=== PATIENT | female | born 1955 | race Two or more races ===

== ENCOUNTER → 2022-07-15 | Outpatient (CLI) | payer OTHER ==
[2022-07-15 09:08] LABS: Basophils # (auto) 0 10 ^3/uL (0-0.2); Basophils % (auto) 0.6 % (0.0-2.0); Eosinophils # (auto) 0.2 10 ^3/uL (0-0.8); Eosinophils % (auto) 2.4 % (0.0-7.0); Hematocrit 30.3 % (36.0-46.0); Hemoglobin 10.3 g/dL (12.2-16.2); Lymphocytes # (auto) 2.7 10 ^3/uL (0.4-5.4); Lymphocytes % (auto) 39.3 % (10.0-50.0); Mean Corpuscular Hemoglobin 31.7 pg (28.0-32.0); Mean Corpuscular Volume 93.4 fL (80.0-100.0); Monocytes # (auto) 0.5 10 ^3/uL (0-1.3); Monocytes % (auto) 6.8 % (0.0-12.0); Neutrophils # (auto) 3.5 10 ^3/uL (1.6-8.6); Neutrophils % (auto) 50.9 % (37.0-80.0); Nucleated Red Blood Cells % 0.1 %; Red Blood Cells 3.25 10^6/uL (4.0-5.20); Red Cell Distribution Width 14.1 % (11.8-14.3)
[2022-07-15 09:39] LABS: Urine Bacteria NONE SEEN /hpf (None Seen); Urine Blood Negative /uL (Negative); Urine Specific Gravity 1.014 (1.001-1.035); Urine WBC 5 /hpf (0 - 5)
[2022-07-15 09:44] LABS: Potassium 4.7 mmol/L (3.5-5.1)
[2022-07-15 09:58] LABS: BUN/Creatinine Ratio 22.3; Bilirubin, Total 0.4 mg/dL (0.2-1.0); Total Protein 7.6 g/dL (6.4-8.2)
== END | disposition home or self-care (01) ==
LOC: LAB 08:10
PROVIDERS: ATTEND Student in an Organized Health Care Education/Training Program
DX: Z12.11 Encounter for screening for malignant neoplasm of colon (principal); R73.9 Hyperglycemia, unspecified; I10 Essential (primary) hypertension; N39.0 Urinary tract infection, site not specified
CPT/HCPCS: 36415; 80053; 80061; 81001; 82274; 83036; 84443; 85025; 87086

== ENCOUNTER → 2022-11-24 | Outpatient (CLI) | payer OTHER ==
[2022-11-24 08:48] LABS: Urine Bacteria NONE SEEN /hpf (None Seen); Urine Blood Negative /uL (Negative); Urine Specific Gravity 1.015 (1.001-1.035); Urine WBC <1 /hpf (0 - 5)
[2022-11-24 08:50] LABS: Basophils # (auto) 0 10 ^3/uL (0-0.2); Basophils % (auto) 0.7 % (0.0-2.0); Eosinophils # (auto) 0.1 10 ^3/uL (0-0.8); Eosinophils % (auto) 2.5 % (0.0-7.0); Hematocrit 29.5 % (36.0-46.0); Hemoglobin 9.8 g/dL (12.2-16.2); Lymphocytes # (auto) 2.4 10 ^3/uL (0.4-5.4); Lymphocytes % (auto) 44.6 % (10.0-50.0); Mean Corpuscular Hemoglobin 31.9 pg (28.0-32.0); Mean Corpuscular Hgb Conc. 33.1 g/dL (32.0-36.0); Mean Corpuscular Volume 96.2 fL (80.0-100.0); Monocytes # (auto) 0.4 10 ^3/uL (0-1.3); Neutrophils # (auto) 2.5 10 ^3/uL (1.6-8.6); Neutrophils % (auto) 45.2 % (37.0-80.0); Nucleated Red Blood Cells % 0.1 %; Red Blood Cells 3.07 10^6/uL (4.0-5.20); Red Cell Distribution Width 14.5 % (11.8-14.3); White Blood Cell 5.5 10^3/uL (4.4-10.8)
[2022-11-24 09:42] LABS: Albumin 3.9 g/dL (3.4-5.0); Potassium 5.1 mmol/L (3.5-5.1)
[2022-11-24 09:47] LABS: BUN/Creatinine Ratio 19.9 (10.0-20.0); Bilirubin, Total 0.2 mg/dL (0.2-1.0); Calcium 9.2 mg/dL (8.5-10.1); Total Protein 7.6 g/dL (6.4-8.2)
== END | disposition home or self-care (01) ==
LOC: LAB 08:16
PROVIDERS: ATTEND Student in an Organized Health Care Education/Training Program
DX: I12.9 Hypertensive chronic kidney disease with stage 1 through stage 4 chronic kidney disease, or unspecified chronic kidney disease (principal); N18.30 Chronic kidney disease, stage 3 unspecified
CPT/HCPCS: 36415; 80053; 80061; 81001; 83036; 85025

== ENCOUNTER → 2023-02-21 | Outpatient (CLI) | payer OTHER ==
[2023-02-21 07:51] LABS: Basophils # (auto) 0 10 ^3/uL (0-0.2); Basophils % (auto) 0.7 % (0.0-2.0); Eosinophils # (auto) 0.1 10 ^3/uL (0-0.8); Eosinophils % (auto) 2.6 % (0.0-7.0); Hematocrit 29.8 % (36.0-46.0); Hemoglobin 10.2 g/dL (12.2-16.2); Lymphocytes # (auto) 2.5 10 ^3/uL (0.4-5.4); Lymphocytes % (auto) 44.2 % (10.0-50.0); Mean Corpuscular Hemoglobin 32.8 pg (28.0-32.0); Mean Corpuscular Hgb Conc. 34.2 g/dL (32.0-36.0); Monocytes # (auto) 0.5 10 ^3/uL (0-1.3); Monocytes % (auto) 8.1 % (0.0-12.0); Neutrophils # (auto) 2.5 10 ^3/uL (1.6-8.6); Neutrophils % (auto) 44.4 % (37.0-80.0); Nucleated Red Blood Cells % 0.1 %; Red Cell Distribution Width 13.8 % (11.8-14.3); White Blood Cell 5.6 10^3/uL (4.4-10.8)
[2023-02-21 08:11] LABS: Potassium 5.2 mmol/L (3.5-5.1)
[2023-02-21 08:12] LABS: Calcium 9.6 mg/dL (8.5-10.1)
[2023-02-21 08:17] LABS: Albumin 4.6 g/dL (3.2-4.8); BUN/Creatinine Ratio 15.2 (10.0-20.0)
[2023-02-21 08:41] LABS: Urine Bacteria NONE SEEN /hpf (None Seen); Urine Blood Negative /uL (Negative); Urine Clarity Clear (Clear); Urine Hyaline Cast FEW /lpf (0 - 2); Urine Protein, UAD Negative (Negative); Urine Specific Gravity 1.015 (1.001-1.035); Urine Urobilinogen Normal (Negative); Urine WBC 1 /hpf (0 - 5)
[2023-02-21 08:54] LABS: Urine Color Straw (Yellow)
[2023-02-21 08:55] LABS: Protein, Urine 16.4 mg/dL (0.0-11.9)
[2023-02-21 08:58] LABS: Creatinine, Urine 131.12 mg/dL (30.0-125.0); Urine Protein/Creatinine Ratio 0.13
== END | disposition home or self-care (01) ==
LOC: LAB 07:11
PROVIDERS: ATTEND Student in an Organized Health Care Education/Training Program
DX: N18.30 Chronic kidney disease, stage 3 unspecified (principal); N39.0 Urinary tract infection, site not specified; R80.9 Proteinuria, unspecified; E21.3 Hyperparathyroidism, unspecified; M10.9 Gout, unspecified; E55.9 Vitamin D deficiency, unspecified; E11.21 Type 2 diabetes mellitus with diabetic nephropathy
CPT/HCPCS: 36415; 80069; 81001; 82306; 82570; 83970; 84156; 84550; 85025

== ENCOUNTER → 2023-02-24 | Outpatient (CLI) | payer OTHER ==
[2023-02-24 07:54] LABS: Basophils # (auto) 0 10 ^3/uL (0-0.2); Basophils % (auto) 0.7 % (0.0-2.0); Hemoglobin 9.9 g/dL (12.2-16.2); Monocytes # (auto) 0.4 10 ^3/uL (0-1.3); Neutrophils # (auto) 2.6 10 ^3/uL (1.6-8.6)
[2023-02-24 07:59] LABS: Eosinophils # (auto) 0.1 10 ^3/uL (0-0.8); Eosinophils % (auto) 2.4 % (0.0-7.0); Hematocrit 29.6 % (36.0-46.0); Lymphocytes # (auto) 2.6 10 ^3/uL (0.4-5.4); Lymphocytes % (auto) 45.1 % (10.0-50.0); Mean Corpuscular Hemoglobin 32.4 pg (28.0-32.0); Mean Corpuscular Hgb Conc. 33.4 g/dL (32.0-36.0); Mean Corpuscular Volume 96.9 fL (80.0-100.0); Monocytes % (auto) 7.3 % (0.0-12.0); Neutrophils % (auto) 44.5 % (37.0-80.0); Nucleated Red Blood Cells % 0.1 %; Red Blood Cells 3.05 10^6/uL (4.0-5.20); Red Cell Distribution Width 13.6 % (11.8-14.3); White Blood Cell 5.8 10^3/uL (4.4-10.8)
[2023-02-24 08:05] LABS: Urine Bacteria NONE SEEN /hpf (None Seen); Urine Blood Negative /uL (Negative); Urine Clarity Clear (Clear); Urine Color Colorless (Yellow); Urine Protein, UAD Negative (Negative); Urine Specific Gravity 1.014 (1.001-1.035); Urine Urobilinogen Normal (Negative); Urine WBC <1 /hpf (0 - 5)
[2023-02-24 08:56] LABS: Alanine Aminotransferase 12 U/L (7-40); Albumin 4.5 g/dL (3.2-4.8); Alkaline Phosphatase 84 U/L (46-116); Anion Gap 8 (5-15); Aspartate Aminotransferase 17 U/L (13-40); BUN/Creatinine Ratio 16.1 (10.0-20.0); Blood Urea Nitrogen 29 mg/dL (9-23); Calcium 9.5 mg/dL (8.5-10.1); Carbon Dioxide 22 mmol/L (20-30); Chloride 108 mmol/L (98-107); Glucose 90 mg/dL (74-106); LDL Cholesterol 106 mg/dL (< 100); Potassium 5.3 mmol/L (3.5-5.1); Sodium 138 mmol/L (136-145); Triglycerides 102 mg/dL (< 150)
[2023-02-24 08:57] LABS: Bilirubin, Total 0.3 mg/dL (0.2-1.0); Cholesterol 165 mg/dL (< 200); HDL Cholesterol 44 mg/dL (40-59); Total Protein 7.5 g/dL (5.7-8.2)
== END | disposition home or self-care (01) ==
LOC: LAB 07:37
DX: I12.9 Hypertensive chronic kidney disease with stage 1 through stage 4 chronic kidney disease, or unspecified chronic kidney disease (principal); N18.32 Chronic kidney disease, stage 3b; D63.1 Anemia in chronic kidney disease; R73.03 Prediabetes
CPT/HCPCS: 36415; 80053; 80061; 81001; 82306; 83036; 83970; 85025

== ENCOUNTER → 2023-05-30 | Outpatient (CLI) | payer OTHER ==
[2023-05-30 09:00] LABS: Basophils # (auto) 0 10 ^3/uL (0-0.2); Basophils % (auto) 0.5 % (0.0-2.0); Eosinophils # (auto) 0.2 10 ^3/uL (0-0.8); Eosinophils % (auto) 2.7 % (0.0-7.0); Hematocrit 30.9 % (36.0-46.0); Hemoglobin 10.1 g/dL (12.2-16.2); Lymphocytes # (auto) 2.5 10 ^3/uL (0.4-5.4); Lymphocytes % (auto) 35.3 % (10.0-50.0); Mean Corpuscular Hemoglobin 31.8 pg (28.0-32.0); Mean Corpuscular Hgb Conc. 32.9 g/dL (32.0-36.0); Mean Corpuscular Volume 96.9 fL (80.0-100.0); Monocytes # (auto) 0.5 10 ^3/uL (0-1.3); Monocytes % (auto) 7.1 % (0.0-12.0); Neutrophils # (auto) 3.8 10 ^3/uL (1.6-8.6); Neutrophils % (auto) 54.4 % (37.0-80.0); Red Blood Cells 3.19 10^6/uL (4.0-5.20); Red Cell Distribution Width 13.9 % (11.8-14.3)
[2023-05-30 09:22] LABS: Urine Blood Negative /uL (Negative); Urine Clarity HAZY (Clear); Urine Color Colorless (Yellow); Urine Protein, UAD Negative (Negative); Urine Specific Gravity 1.014 (1.001-1.035); Urine Urobilinogen Normal (Negative); Urine pH 5.5 (5.0-8.0)
[2023-05-30 09:23] LABS: Albumin 4.5 g/dL (3.2-4.8); Alkaline Phosphatase 95 U/L (46-116); Anion Gap 5 (5-15); Aspartate Aminotransferase 23 U/L (13-40); Blood Urea Nitrogen 26 mg/dL (9-23); Calcium 9.8 mg/dL (8.5-10.1); Carbon Dioxide 22 mmol/L (20-30); Chloride 109 mmol/L (98-107); Cholesterol 173 mg/dL (< 200); Glucose 87 mg/dL (74-106); HDL Cholesterol 43 mg/dL (40-59); LDL Cholesterol 111 mg/dL (< 100); Sodium 136 mmol/L (136-145); Triglycerides 124 mg/dL (< 150)
[2023-05-30 09:24] LABS: Bilirubin, Total 0.4 mg/dL (0.2-1.0); Total Protein 7.6 g/dL (5.7-8.2)
[2023-05-30 09:25] LABS: Alanine Aminotransferase 9 U/L (7-40)
[2023-05-30 09:32] LABS: Potassium 5.6 mmol/L (3.5-5.1)
== END | disposition home or self-care (01) ==
LOC: LAB 08:45
DX: E11.22 Type 2 diabetes mellitus with diabetic chronic kidney disease (principal); N18.4 Chronic kidney disease, stage 4 (severe); E55.9 Vitamin D deficiency, unspecified; E11.311 Type 2 diabetes mellitus with unspecified diabetic retinopathy with macular edema; E78.5 Hyperlipidemia, unspecified
CPT/HCPCS: 36415; 80053; 80061; 81003; 82306; 85025

== ENCOUNTER → 2023-06-17 | Outpatient (CLI) | payer OTHER ==
[2023-06-17 10:15] LABS: Anion Gap 6 (5-15); Carbon Dioxide 24 mmol/L (20-30); Chloride 108 mmol/L (98-107); Potassium 4.9 mmol/L (3.5-5.1); Sodium 138 mmol/L (136-145)
[2023-06-17 10:16] LABS: Calcium 9.6 mg/dL (8.5-10.1)
[2023-06-17 10:21] LABS: BUN/Creatinine Ratio 14.7 (10.0-20.0); Blood Urea Nitrogen 24 mg/dL (9-23); Glucose 89 mg/dL (74-106)
== END | disposition home or self-care (01) ==
LOC: LAB 09:00
DX: E78.5 Hyperlipidemia, unspecified (principal)
CPT/HCPCS: 36415; 80048

== ENCOUNTER → 2023-09-13 | Outpatient (CLI) | payer OTHER ==
[2023-09-13 08:25] LABS: Basophils # (auto) 0 10 ^3/uL (0-0.2); Basophils % (auto) 0.7 % (0.0-2.0); Eosinophils # (auto) 0.1 10 ^3/uL (0-0.8); Eosinophils % (auto) 2.8 % (0.0-7.0); Hemoglobin 10.3 g/dL (12.2-16.2); Lymphocytes # (auto) 2.4 10 ^3/uL (0.4-5.4); Lymphocytes % (auto) 46.5 % (10.0-50.0); Mean Corpuscular Hemoglobin 31.8 pg (28.0-32.0); Mean Corpuscular Hgb Conc. 33.3 g/dL (32.0-36.0); Mean Corpuscular Volume 95.5 fL (80.0-100.0); Monocytes # (auto) 0.5 10 ^3/uL (0-1.3); Neutrophils # (auto) 2.2 10 ^3/uL (1.6-8.6); Red Blood Cells 3.24 10^6/uL (4.0-5.20); Red Cell Distribution Width 14.2 % (11.8-14.3); White Blood Cell 5.2 10^3/uL (4.4-10.8)
[2023-09-13 08:29] LABS: Urine Bacteria FEW /hpf (None Seen); Urine Blood TRACE /uL (Negative); Urine Budding Yeast OCCASIONAL /hpf (None Seen); Urine Clarity Clear (Clear); Urine Color Light-Yellow (Yellow); Urine Mucus FEW (None Seen); Urine Protein, UAD TRACE (Negative); Urine Specific Gravity 1.016 (1.001-1.035); Urine Urobilinogen Normal (Negative); Urine WBC 1 /hpf (0 - 5)
[2023-09-13 08:38] LABS: Potassium 4.8 mmol/L (3.5-5.1)
[2023-09-13 08:39] LABS: Calcium 9.8 mg/dL (8.5-10.1)
[2023-09-13 08:44] LABS: Albumin 4.2 g/dL (3.2-4.8); BUN/Creatinine Ratio 14.3 (10.0-20.0)
[2023-09-13 08:46] LABS: Phosphorus 3.5 mg/dL (2.4-5.1)
[2023-09-13 09:22] LABS: Creatinine, Urine 128.44 mg/dL (30.0-125.0); Protein, Urine 30.7 mg/dL (0.0-11.9); Urine Protein/Creatinine Ratio 0.24
== END | disposition home or self-care (01) ==
LOC: LAB 08:06
PROVIDERS: ATTEND Student in an Organized Health Care Education/Training Program
DX: N18.31 Chronic kidney disease, stage 3a (principal); D63.1 Anemia in chronic kidney disease; R80.9 Proteinuria, unspecified; R82.90 Unspecified abnormal findings in urine
CPT/HCPCS: 36415; 80069; 81001; 82570; 84156; 85025

== ENCOUNTER → 2023-11-28 | Outpatient (CLI) | payer OTHER ==
[2023-11-28 08:31] LABS: Urine Bacteria None Seen /hpf (None Seen)
[2023-11-28 09:05] LABS: Basophils # (auto) 0 10 ^3/uL (0-0.2); Basophils % (auto) 0.5 % (0.0-2.0); Eosinophils # (auto) 0.2 10 ^3/uL (0-0.8); Eosinophils % (auto) 2.6 % (0.0-7.0); Hematocrit 31.6 % (36.0-46.0); Hemoglobin 10.7 g/dL (12.2-16.2); Lymphocytes # (auto) 2.9 10 ^3/uL (0.4-5.4); Lymphocytes % (auto) 45.3 % (10.0-50.0); Mean Corpuscular Hemoglobin 31.9 pg (28.0-32.0); Mean Corpuscular Hgb Conc. 33.7 g/dL (32.0-36.0); Mean Corpuscular Volume 94.8 fL (80.0-100.0); Monocytes # (auto) 0.5 10 ^3/uL (0-1.3); Monocytes % (auto) 7.5 % (0.0-12.0); Neutrophils # (auto) 2.8 10 ^3/uL (1.6-8.6); Neutrophils % (auto) 44.1 % (37.0-80.0); Red Blood Cells 3.34 10^6/uL (4.0-5.20); Red Cell Distribution Width 15.1 % (11.8-14.3); White Blood Cell 6.4 10^3/uL (4.4-10.8)
[2023-11-28 09:34] LABS: Urine Blood TRACE /uL (Negative); Urine Clarity Clear (Clear); Urine Color Light-Yellow (Yellow); Urine Mucus FEW (None Seen); Urine Protein, UAD Negative (Negative); Urine Specific Gravity 1.017 (1.001-1.035); Urine Urobilinogen Normal (Negative); Urine WBC 1 /hpf (0 - 5); Urine pH 5.5 (5.0-9.0)
[2023-11-28 09:51] LABS: Alanine Aminotransferase 10 U/L (7-40); Alkaline Phosphatase 89 U/L (46-116); Anion Gap 6 (5-15); Calcium 9.5 mg/dL (8.7-10.4); Carbon Dioxide 24 mmol/L (20-30); Chloride 109 mmol/L (98-107); Potassium 4.7 mmol/L (3.5-5.1); Sodium 139 mmol/L (136-145)
[2023-11-28 09:52] LABS: BUN/Creatinine Ratio 15.9 (10.0-20.0); Blood Urea Nitrogen 27 mg/dL (9-23); Glucose 91 mg/dL (74-106); LDL Cholesterol 110 mg/dL (< 100); Triglycerides 130 mg/dL (< 150)
[2023-11-28 09:53] LABS: Albumin 4.4 g/dL (3.2-4.8); Aspartate Aminotransferase 18 U/L (13-40)
[2023-11-28 09:54] LABS: Bilirubin, Total 0.3 mg/dL (0.2-1.0); Cholesterol 173 mg/dL (< 200); HDL Cholesterol 43 mg/dL (40-59); Total Protein 6.9 g/dL (5.7-8.2)
== END | disposition home or self-care (01) ==
LOC: LAB 08:17
PROVIDERS: ATTEND Student in an Organized Health Care Education/Training Program
DX: Z12.11 Encounter for screening for malignant neoplasm of colon (principal); I10 Essential (primary) hypertension; R73.9 Hyperglycemia, unspecified
CPT/HCPCS: 36415; 80053; 80061; 81001; 82043; 83036; 84443; 85025

== ENCOUNTER → 2024-03-08 | Outpatient (CLI) | payer OTHER ==
[2024-03-08 09:09] LABS: Urine Bacteria None Seen /hpf (None Seen)
[2024-03-08 09:20] LABS: Basophils # (auto) 0 10 ^3/uL (0-0.2); Basophils % (auto) 0.6 % (0.0-2.0); Eosinophils # (auto) 0.1 10 ^3/uL (0-0.8); Eosinophils % (auto) 1.9 % (0.0-7.0); Hematocrit 32.1 % (36.0-46.0); Hemoglobin 10.7 g/dL (12.2-16.2); Lymphocytes # (auto) 2.8 10 ^3/uL (0.4-5.4); Lymphocytes % (auto) 44.2 % (10.0-50.0); Mean Corpuscular Hgb Conc. 33.4 g/dL (32.0-36.0); Mean Corpuscular Volume 95.9 fL (80.0-100.0); Monocytes # (auto) 0.5 10 ^3/uL (0-1.3); Monocytes % (auto) 7.5 % (0.0-12.0); Neutrophils % (auto) 45.8 % (37.0-80.0); Nucleated Red Blood Cells % 0.1 %; Platelet Count (auto) 201 10^3/uL (140-450); Red Blood Cells 3.35 10^6/uL (4.0-5.20); White Blood Cell 6.4 10^3/uL (4.4-10.8)
[2024-03-08 10:00] LABS: Alanine Aminotransferase 12 U/L (7-40); Albumin 4.5 g/dL (3.2-4.8); Alkaline Phosphatase 87 U/L (46-116); Anion Gap 7 (5-15); Aspartate Aminotransferase 21 U/L (13-40); Blood Urea Nitrogen 23 mg/dL (9-23); Calcium 9.7 mg/dL (8.7-10.4); Carbon Dioxide 24 mmol/L (20-31); Chloride 106 mmol/L (98-107); Glucose 90 mg/dL (74-106); Potassium 4.7 mmol/L (3.5-5.1); Sodium 137 mmol/L (136-145)
[2024-03-08 10:01] LABS: Bilirubin, Total 0.4 mg/dL (0.2-1.0); Total Protein 7.6 g/dL (5.7-8.2)
[2024-03-08 10:05] LABS: Protein, Urine 6.2 mg/dL (1-14); Urine Blood TRACE /uL (Negative); Urine Clarity Clear (Clear); Urine Color Colorless (Yellow); Urine Protein, UAD Negative (Negative); Urine Specific Gravity 1.007 (1.001-1.035); Urine Urobilinogen Normal (Negative); Urine WBC 1 /hpf (0 - 5); Urine pH 5.5 (5.0-9.0)
[2024-03-08 10:08] LABS: Creatinine, Urine 34.41 mg/dL (30.0-125.0); Urine Protein/Creatinine Ratio 0.18
== END | disposition home or self-care (01) ==
LOC: LAB 08:55
PROVIDERS: ATTEND Internal Medicine Nephrology
DX: E21.3 Hyperparathyroidism, unspecified (principal); N18.30 Chronic kidney disease, stage 3 unspecified; D63.1 Anemia in chronic kidney disease; N39.0 Urinary tract infection, site not specified; R80.9 Proteinuria, unspecified; M10.9 Gout, unspecified; E55.9 Vitamin D deficiency, unspecified; E11.22 Type 2 diabetes mellitus with diabetic chronic kidney disease
CPT/HCPCS: 36415; 80053; 81001; 82043; 82570; 84156; 85025

== ENCOUNTER → 2024-05-29 | Outpatient (CLI) | payer OTHER ==
[2024-05-29 08:32] LABS: Urine Bacteria None Seen /hpf (None Seen)
[2024-05-29 08:58] LABS: Basophils # (auto) 0 10 ^3/uL (0-0.2); Basophils % (auto) 0.8 % (0.0-2.0); Eosinophils # (auto) 0.1 10 ^3/uL (0-0.8); Eosinophils % (auto) 1.8 % (0.0-7.0); Hematocrit 32.8 % (36.0-46.0); Hemoglobin 10.9 g/dL (12.2-16.2); Lymphocytes # (auto) 2.7 10 ^3/uL (0.4-5.4); Lymphocytes % (auto) 46.4 % (10.0-50.0); Mean Corpuscular Hemoglobin 32.2 pg (28.0-32.0); Mean Corpuscular Hgb Conc. 33.3 g/dL (32.0-36.0); Mean Corpuscular Volume 96.5 fL (80.0-100.0); Monocytes # (auto) 0.4 10 ^3/uL (0-1.3); Monocytes % (auto) 7.4 % (0.0-12.0); Neutrophils # (auto) 2.6 10 ^3/uL (1.6-8.6); Neutrophils % (auto) 43.6 % (37.0-80.0); Platelet Count (auto) 205 10^3/uL (140-450); White Blood Cell 5.9 10^3/uL (4.4-10.8)
[2024-05-29 09:06] LABS: Albumin 4.6 g/dL (3.2-4.8); Alkaline Phosphatase 105 U/L (46-116); Anion Gap 7 (5-15); Aspartate Aminotransferase 22 U/L (13-40); BUN/Creatinine Ratio 17.2 (10.0-20.0); Calcium 9.8 mg/dL (8.7-10.4); Carbon Dioxide 23 mmol/L (20-31); Glucose 94 mg/dL (74-106); Potassium 4.7 mmol/L (3.5-5.1); Sodium 139 mmol/L (136-145); Triglycerides 122 mg/dL (< 150); Urine Blood 1+ /uL (Negative); Urine Clarity Clear (Clear); Urine Color Light-Yellow (Yellow); Urine Protein, UAD TRACE (Negative); Urine Specific Gravity 1.015 (1.001-1.035); Urine Squamous Epithelial Cell FEW /hpf (<5); Urine Urobilinogen Normal (Negative); Urine WBC 3 /HPF (0-5); Urine pH 5.5 (5.0-9.0)
[2024-05-29 09:07] LABS: Alanine Aminotransferase 9 U/L (7-40); Bilirubin, Total 0.2 mg/dL (0.2-1.0); Blood Urea Nitrogen 27 mg/dL (9-23); Chloride 109 mmol/L (98-107); Cholesterol 189 mg/dL (< 200); LDL Cholesterol 124 mg/dL (< 100); Total Protein 7.2 g/dL (5.7-8.2)
[2024-05-29 09:14] LABS: HDL Cholesterol 47 mg/dL (40-59)
== END | disposition home or self-care (01) ==
LOC: LAB 08:04
PROVIDERS: ATTEND Student in an Organized Health Care Education/Training Program
DX: I10 Essential (primary) hypertension (principal); R73.9 Hyperglycemia, unspecified
CPT/HCPCS: 36415; 80053; 80061; 81001; 83036; 84443; 85025

== ENCOUNTER → 2024-09-04 | Outpatient (CLI) | payer OTHER ==
[2024-09-04 09:13] LABS: Urine Bacteria None Seen /hpf (None Seen)
[2024-09-04 09:22] LABS: Basophils # (auto) 0 10 ^3/uL (0-0.2); Basophils % (auto) 0.7 % (0.0-2.0); Eosinophils # (auto) 0.2 10 ^3/uL (0-0.8); Eosinophils % (auto) 2.5 % (0.0-7.0); Hematocrit 33.1 % (36.0-46.0); Hemoglobin 11.3 g/dL (12.2-16.2); Lymphocytes # (auto) 2.5 10 ^3/uL (0.4-5.4); Lymphocytes % (auto) 40.9 % (10.0-50.0); Mean Corpuscular Hemoglobin 32.2 pg (28.0-32.0); Mean Corpuscular Hgb Conc. 34.1 g/dL (32.0-36.0); Mean Corpuscular Volume 94.3 fL (80.0-100.0); Monocytes # (auto) 0.5 10 ^3/uL (0-1.3); Monocytes % (auto) 7.4 % (0.0-12.0); Neutrophils # (auto) 2.9 10 ^3/uL (1.6-8.6); Neutrophils % (auto) 48.5 % (37.0-80.0); Nucleated Red Blood Cells % 0.1 %; Platelet Count (auto) 211 10^3/uL (140-450); Red Blood Cells 3.51 10^6/uL (4.0-5.20); Red Cell Distribution Width 14.2 % (11.8-14.3); White Blood Cell 6.1 10^3/uL (4.4-10.8)
[2024-09-04 09:24] LABS: Urine Blood Negative /uL (Negative); Urine Clarity Clear (Clear); Urine Color Light-Yellow (Yellow); Urine Protein, UAD TRACE (Negative); Urine Specific Gravity 1.016 (1.001-1.035); Urine Squamous Epithelial Cell FEW /hpf (<5); Urine Urobilinogen Normal (Negative); Urine WBC 12 /HPF (0-5); Urine pH 5.5 (5.0-9.0)
[2024-09-04 09:39] LABS: Potassium 4.6 mmol/L (3.5-5.1); Sodium 140 mmol/L (136-145)
[2024-09-04 09:40] LABS: Anion Gap 9 (5-15); Carbon Dioxide 24 mmol/L (20-31)
[2024-09-04 09:42] LABS: Chloride 107 mmol/L (98-107); Protein, Urine 29.6 mg/dL (1-14)
[2024-09-04 09:45] LABS: BUN/Creatinine Ratio 15.2 (10.0-20.0); Creatinine, Urine 104.7 mg/dL (30.0-125.0); Glucose 90 mg/dL (74-106); Urine Protein/Creatinine Ratio 0.28
[2024-09-04 09:46] LABS: Blood Urea Nitrogen 23 mg/dL (9-23)
== END | disposition home or self-care (01) ==
LOC: LAB 08:56
PROVIDERS: ATTEND Internal Medicine Nephrology
DX: E11.22 Type 2 diabetes mellitus with diabetic chronic kidney disease (principal); N18.30 Chronic kidney disease, stage 3 unspecified; E11.21 Type 2 diabetes mellitus with diabetic nephropathy; E21.3 Hyperparathyroidism, unspecified; E55.9 Vitamin D deficiency, unspecified; M10.9 Gout, unspecified; N39.0 Urinary tract infection, site not specified; R80.9 Proteinuria, unspecified; D63.1 Anemia in chronic kidney disease
CPT/HCPCS: 36415; 80048; 81001; 82570; 84156; 85025

== ENCOUNTER 2024-09-24 06:10 | Inpatient (IN) | payer OTHER ==
[2024-09-21 10:06] LABS: Urine Bacteria None Seen /hpf (None Seen)
[2024-09-21 10:12] LABS: Basophils # (auto) 0 10 ^3/uL (0-0.2); Basophils % (auto) 0.5 % (0.0-2.0); Eosinophils # (auto) 0.1 10 ^3/uL (0-0.8); Eosinophils % (auto) 1.4 % (0.0-7.0); Hematocrit 32.1 % (36.0-46.0); Hemoglobin 10.8 g/dL (12.2-16.2); Lymphocytes # (auto) 2.5 10 ^3/uL (0.4-5.4); Lymphocytes % (auto) 39.7 % (10.0-50.0); Mean Corpuscular Hemoglobin 32.1 pg (28.0-32.0); Mean Corpuscular Hgb Conc. 33.7 g/dL (32.0-36.0); Mean Corpuscular Volume 95.1 fL (80.0-100.0); Monocytes # (auto) 0.5 10 ^3/uL (0-1.3); Monocytes % (auto) 7.3 % (0.0-12.0); Neutrophils # (auto) 3.2 10 ^3/uL (1.6-8.6); Neutrophils % (auto) 51.1 % (37.0-80.0); Platelet Count (auto) 193 10^3/uL (140-450); Red Blood Cells 3.38 10^6/uL (4.0-5.20); White Blood Cell 6.2 10^3/uL (4.4-10.8)
[2024-09-21 10:39] LABS: Alanine Aminotransferase 12 U/L (7-40); Albumin 4.6 g/dL (3.2-4.8); Alkaline Phosphatase 104 U/L (46-116); Anion Gap 7 (5-15); Aspartate Aminotransferase 18 U/L (13-40); BUN/Creatinine Ratio 19.4 (10.0-20.0); Calcium 9.7 mg/dL (8.7-10.4); Carbon Dioxide 24 mmol/L (20-31); Potassium 4.7 mmol/L (3.5-5.1); Sodium 139 mmol/L (136-145); Total Protein 7.3 g/dL (5.7-8.2)
[2024-09-21 10:40] LABS: INR 0.95 (0.9-1.15); Partial Thromboplastin Time 28.8 SEC (24.5-34.5); Prothrombin Time 10.1 sec (9.3-11.8)
[2024-09-21 10:43] LABS: Bilirubin, Total 0.3 mg/dL (0.2-1.0); Blood Urea Nitrogen 30 mg/dL (9-23); Chloride 108 mmol/L (98-107); Glucose 116 mg/dL (74-106)
[2024-09-21 10:54] LABS: Urine Blood TRACE /uL (Negative); Urine Clarity Clear (Clear); Urine Color Colorless (Yellow); Urine Protein, UAD Negative (Negative); Urine Specific Gravity 1.012 (1.001-1.035); Urine Squamous Epithelial Cell FEW /hpf (<5); Urine Urobilinogen Normal (Negative); Urine WBC 8 /HPF (0-5)
--- NOTE | 2024-09-22 10:08 | DVHHP2 ---
HARD CANDY SPINNER CC & HPI Date Date of Admission: September 24, 2024 Chief Complaints: Reason for admission: Inpatient Surgery History of Present Complaints History of Present Complaints 69y x4, s/p BTL Admitted for planned procedure: vNOTES TVH, poss BSO, Cystocele repair, Rectoc kesha repair, uterosacral colposuspension, cystoscopy, possible laparotomy/ laparoscopy. Indication: Menopausal female with symptomatic uterine prolapse, complains of "vaginal bulge" and pelvic pressure. Denies any COOK PICKLED MEAT bleeding. Has some LUCIAN complaints, still pending eval by Urology for possible incontinence procedure in the future. Recent PAP NILM PMHx: 1. Chronic HTN 2. Hypertensive Kidney disease (CKD stage 3) 3. Osteopenia 4. Chronic Anemia due to kidney disease 5. Hyperlipidemia Past Surg Hx: BTL Meds: Ferrous Sulfate 325mg Lisinopril (stopped 09/2024) Vitamin D Omeprazole Loratidine Allergies: NKDA Social Hx: . Denies EtOH, drug or tobacco use now or in the past. Family Hx: Mother: HTN, DM2 Father: HTN Brother: Kidney failure Past Medical History Cardiac: No pertinent Hx Pulmonary: No pertinent Hx Central Nervous System: No pertinent Hx GI: No pertinent Hx Hemotology/Oncology: Anemia NOS Hepatobiliary: No pertinent Hx Psychiatric: No pertinent Hx Musculoskeletal: No pertinent Hx Rheumotologic: No pertinent Hx Infectious Disease: No peritnent Hx ENT: No pertinent Hx Renal/: CKD Endocrine: Hyperparathyroidism, Osteopenia Dermatology: No pertinent Hx Past Surgical History: Tubal ligation HARD CANDY SPINNER History HARD CANDY SPINNER History HARD CANDY SPINNER History: PAP 2023, NILM HPV neg Allergies: Coded Allergies: Sulfamethoxazole w/Trimethoprim (Unverified Adverse Reaction, Mild, abdominal pain, 09/21/24) Home Meds Reported Medications Omeprazole (Gnp Omeprazole) 20 Mg Tab, 20 MG PO PRN, TAB 09/21/24 Social History Denies EtOH, drugs or Tobacco use Review of Systems Constitutional: No symptom reported Ears, Nose, & Throat: No symptom reported Eyes: No symptom reported Pulmonary/Respiratory: No symptom reported Cardiovascular: No symptom reported Gastrointestinal: No symptom reported Genitourinary: Frequency, Other (Incontinence ) Musculoskeletal: No symptom reported Skin: No symptom reported Psychiatric: No symptom reported Endocrine: No symptom reported Hemotologic/Lymphatic: No symptom reported Physical Exam Physical Exam Vitals: See EHR HEENT: NCAT Heart: Rhythm Normal Lungs: Clear Abdomen: Soft Extremities: Normal Reflexes: Normal Revising Clerk/Pelvic Exam: Other (Uterine prolapse with midline cystocele, grade 3 (to introitus w/ valsalva). no leak w/ cough.) Assessment and Plan Plan Assessment and Plan: 1. Symptomatic Uterine Prolapse , , stage 3 2. Midline cystocele 3. LUCIAN 4. HTN with chronic renal insufficiency Plan: The patient has elected for surgical repair. Declined observation or use of pessary. I have consented patient for: vNOTES-TVH poss BSO, Cystocele/rectocele repair, uterosacral colposuspension, cystoscopy, possible laparotomy/laparoscopy R/B/A of surgery include: pain, bleeding, infection, dyspareunia, recurrence of prolapse, worsening urinary incontinence or urinary retention, possible injury to bowel, bladder, vessels. Possible need to use a urinary catheter for a prolonged period of time. No guarantee given nor implied of results. All questions answered. Visit Coding OBGYN Date of Service: September 24, 2024 Billing Provider: ALEM FERMIN DO [place] SEAMER Common Visit Codes: [id number] INP/OBS CARE (HIGH) ALEM FERMIN DO September 22, 2024 10:08
[~2024-09-24] VITALS: Ht 152.4 cm; Wt 59.8 kg
[~2024-09-24 06:10] MED LIST: OMEP20TA PO
[2024-09-24] MEDS ORDERED: HYDROmorphone HCL 2 MG/ML VL/or syr ONE (07:36)
[2024-09-24] MEDS ORDERED: MIDAZOLAM HCL 2MG/2ML 2ml VIAL (1mg/ml) ONE (07:36)
[2024-09-24] MEDS ORDERED: fentaNYL CITRATE 100 MCG/2 ML VL ONE (07:36)
[2024-09-24] MEDS: ceFAZolin 2 GM/D5W50ml 50 ML IV ONE (07:58)
[2024-09-24] MEDS ORDERED: PROPOFOL 10 MG/ML 20 ML IV ONE (08:13)
[2024-09-24] MEDS ORDERED: ePHEDrine SULFATE 50 MG/ML AMP IV PRN (08:30)
[2024-09-24] MEDS ORDERED: hydrALAZINE HCL 20 MG/ML VL IV PRN (08:30)
[2024-09-24] MEDS ORDERED: MIDAZOLAM HCL 2MG/2ML 2ml VIAL (1mg/ml) IV PRN (08:30)
[2024-09-24] MEDS: ONDANSETRON HCL 4 MG/2 ML VIAL IV ONE (08:30)
[2024-09-24] MEDS ORDERED: MORPHINE SULFATE 4 MG/ML SYR/VIAL IV PRN (08:30)
[2024-09-24] MEDS ORDERED: HYDROmorphone HCL 2 MG/ML VL/or syr IV PRN ×2 (08:30→12:15)
[2024-09-24] MEDS ORDERED: ROCURONIUM 10MG/ML 10ML VIAL IV ONE (08:31)
[2024-09-24] MEDS ORDERED: ETOMIDATE (2MG/ML) 20ML VIAL IV ONE (08:43)
[2024-09-24] MEDS: VASOPRESSIN 20 UNIT/ML ONE (08:45)
[2024-09-24] MEDS ORDERED: SUGAMMADEX 200mg/2ml Vial (100MG/ML) IV ONE (10:40)
[2024-09-24] MEDS: CONJ ESTROGENS 0.625MG/GM VAG CRM 30GM PV ONE (10:41)
--- NOTE | 2024-09-24 12:03 | DVHPN2 ---
Visit Coding OBGYN Date of Service: September 24, 2024 Billing Provider: ALEM FERMIN DO ARC AIR OPERATOR Common Visit Codes: PROCEDURE ONLY ARC AIR OPERATOR Procedure Codes: 70598-[id number] COLPORRHAPHY (36400- Total Vaginaly hysterectomy < 250gm, 77548- Anterior Colpohrrhaphy, 52153-Fzkqudpnu uterosacr al, 29629- Cystourethroscopy) ALEM FERMIN DO September 24, 2024 12:03
[2024-09-24] MEDS ORDERED: ONDANSETRON HCL 4 MG/2 ML VIAL IV PRN (12:15)
[2024-09-24] MEDS: ACETAMINOPHEN IV 100 ML IV ONE (12:15)
[2024-09-24] MEDS ORDERED: HYDROcodone-ACET 5/325MG TAB PO PRN (12:15)
[2024-09-24] MEDS: SODIUM CHLORIDE 0.9% 1,000 ML IV SCH (12:45)
--- NOTE | 2024-09-24 13:51 | DVHOP ---
DATE OF SURGERY: 09/24/2024 PREOPERATIVE DIAGNOSIS: Symptomatic uterine and pelvic organ prolapse. FINAL DIAGNOSIS: Procidentia (complete uterovaginal prolapse). PROCEDURES PERFORMED: * Pelvic exam under anesthesia. * Total vaginal hysterectomy. * Anterior and posterior colporrhaphy. * High uterosacral ligament colposuspension. * Diagnostic cystoscopy. SURGEON: Garland Bryant DO SPEECH COMMUNICATION PROFESSOR: cath lab tech. TYPE OF ANESTHESIA: General endotracheal. ANESTHESIOLOGIST: Stanislav Rae MD. INDICATION FOR PROCEDURE: The patient is a 69-year-old female with 4 prior vaginal deliveries. The patient has symptomatic pelvic prolapse, complaining of vaginal pain, bloating and bulging. She also had symptoms of urinary incontinence and she is still pending evaluation for a possible incontinence procedure with Urology. The patient declined pessary and she elected for vaginal repairs. DESCRIPTION OF FINDINGS: A small 6 cm total length uterus, benign-appearing cervix. No gross evidence of malignancy. Fallopian tubes and ovaries not removed, appear small and benign. The patient desired retention. There was a large cystocele and rectocele that were site-specific repaired. At the conclusion of surgery, diagnostic cystoscopy revealed a normal bladder with no suture material in the bladder. There was bilateral efflux of urine from the ureteral orifices x 2. Good apical support at the conclusion of surgery. Rectal examination also negative at the conclusion of surgery. TECHNICAL PROCEDURE: After informed consent was obtained, the patient was taken to the operating room where she underwent smooth induction with general anesthesia. The patient was placed in the dorsal lithotomy position in [facility]. The vagina, perineum, and abdomen were thoroughly prepped and the patient was sterilely draped in the usual fashion. A pelvic exam was then performed under anesthesia with the above-noted findings. A artis catheter was placed into the bladder. A weighted speculum was placed into the vagina. The anterior and posterior lips of the cervix were grasped with John retractors. Upon downward traction on the cervix, the uterus completely was expelled from the patient's body demonstrating complete prolapse. I then began to inject the vaginal epithelium circumferentially with a dilute solution of vasopressin and normal saline until blanching of the vaginal mucosa was noted. A circumferential incision was made with the scalpel around the cervix. The posterior incision was extended laterally with digital technique. The peritoneum was grasped with pickups and incised sharply with Metzenbaum scissors and entry into the posterior pouch of Reggie was performed atraumatically. It was free of adhesions. A long weighted speculum was then placed into this incision. Anteriorly, the bladder and bladder pillars were dissected off the pubocervical fascia. The peritoneal reflection was identified and incised sharply with Metzenbaum scissors and entry into the anterior cul-de-sac was performed atraumatically. A right angle retractor was placed into the anterior colpotomy. Next, with an examining finger, the uterosacrals were identified bilaterally. Sena clamps were used to clamp the cardinal uterosacral ligament complex bilaterally. These were transected sharply and both ligaments were suture ligated with #0 Vicryl stitches. The uterine vessels were clamped, cut and sutured bilaterally. Next, the uterine fundus was inverted and the corneal structures easily identified. They were free from adhesions. Using a curved Pean clamp, the round ligament, proximal fallopian tube, and utero ovarian ligaments were clamped, transected, and suture ligated bilaterally with good hemostasis obtained. Next, the uterus was delivered and handed off to the surgical forceps fabricator for submission to pathology. I then injected the anterior vaginal mucosa with a dilute solution of Vasopresion. A midline incision was made with the scalpel just 2 cm cm distal to the urethra. The cystocele was then sharply and bluntly dissected. Sharp dissection was used to free the cystocele from the vaginal epithelium. Next, using 2-0 Vicryl, the cystocele was plicated in the midline in a site-specific fashion. Five rows of suture material were used to obliterate the redundant cystocele. The excess anterior vaginal mucosa was excised sharply with Patton scissors. Next, the V-Path with the Grant O ring was inserted into the vagina in usual fashion. Under laparoscopic vision, bilateral ureters were identified; however, attempts to identify the uterosacral ligaments through vNOTES was difficult. With vNOTES, the uterosacral ligaments could not, easily be identified. Therefore, this was aborted. The Grant was removed. Using right angle retractors, the folds of the uterosacral ligaments were identified bilaterally and #1 Vicryl suture was placed bilaterally. These were tagged for later incorporation into the closure of the vaginal cuff. I then proceeded to close the anterior vaginal epithelium with 2-0 Vicryl in continuous running locking fashion with good tissue approximation. Next, the uterosacral ligaments were incorporated into the anterior and posterior vaginal epithelium. The needles were passed from in to out bilaterally and tied at the apex of the vaginal cuff. The remainder of the vaginal cuff was also closed in vertical fashion using 2-0 Vicryl in continuous running locking fashion with good tissue approximation and hemostasis obtained. Next, a posterior repair was performed by injecting dilute vasopressin into the posterior vaginal epithelium. A midline incision was made sharply with the scalpel. The vaginal epithelium was dissected from the rectovaginal fascia. The rectocele was identified. Next, using 2-0 Ethibond, the defect was closed using a pursestring suture. The excess posterior vaginal epithelium was excised. The remainder of the posterior vaginal cuff was closed with #0 Vicryl in continuous running locking fashion. A small posterior perineorrhaphy was performed and the perineal body and muscles approximated using #2-0 Vicryl. The skin was closed with 2-0 Vicryl in interrupted fashion. At this point, the uterosacral sutures that were passed through the anterior and posterior vaginal epithelium were tied down and the vaginal apex was suspended to the hollow of the sacrum. Next, the Artis catheter was removed. A diagnostic cystoscopy was performed. Bilateral ureteral orifices were visualized with efflux of urine bilaterally. The dome and trigone of the bladder were inspected. There were no lesions, suture material, or injuries that were noted. The cystoscope was removed under direct visualization and the Artis catheter replaced. I then performed a rectal exam at the conclusion of surgery with a normal rectal exam. My gloves were then changed. I then placed a vaginal pack soaked in Premarin vaginal cream into the patient's vagina. The patient was then taken out of lithotomy position, awakened, and taken to the recovery room in stable condition. INTRAOPERATIVE COMPLICATIONS: None. ESTIMATED BLOOD LOSS: 200 mL. POSTOPERATIVE CONDITION: Stable. SPECIMENS: Uterus, cervix, vaginal epithelium. MEDICATIONS: The patient received 2 g of Ancef prior to commencement of surgery. DO WILL Melendez TID: [id number] RECEIPT: [id number] [facility]
[2024-09-24] MEDS: ceFAZolin 1GM/50ML 50 ML IV ONE (16:38)
[2024-09-24 17:40] VITALS: BP 134/69; PULSE 86; RESP 18; TEMP 98; O2SAT 96
[2024-09-24] MEDS ORDERED: HYDR-4902 PO (17:44)
[2024-09-24] MEDS ORDERED: ESTR0.1C5 VA (17:58)
[2024-09-24 20:00] VITALS: RESP 18; O2SAT 96
[2024-09-24 21:00] VITALS: BP 109/70; PULSE 89; RESP 16; TEMP 98; O2SAT 98
[2024-09-24] MEDS: OXYBUTYNIN CHL 5 MG TAB PO SCH (21:41)
[2024-09-24] MEDS: HYDROcodone-ACET 5/325MG TAB PO PRN (21:41)
[2024-09-25] VITALS (8 sets, daily range): BP systolic 105–137; BP diastolic 50–73; PULSE 65–83; RESP 16–18; TEMP 97.9–98.3; O2SAT 96–99
--- NOTE | 2024-09-25 02:05 | DVHPN2 ---
Subjective Progress Notes Subjective POD#1 s/p TVH, A & P repairs, Uterosacral colpopexy, Cystoscopy S: Feeling well. Mild pain, controlled w/ pain tablets. Had N/V after anesthesia, but now feels better. Objective PHYSICAL EXAM Physical Exam: Alert, NAD, appears comfortable Abd: Soft, NT, ND Pulm: Unlabored breathing Ext SOft , neg Rachel sign, no calf tenderness or edema Vagina: no acute vaginal bleeding. VAGINAL PACK REMOVED RN PRESENT as Cleaning Supervisor. Vital Signs and I&O Vital Signs Date Time Temp Pulse Resp B/P (MAP) Pulse Ox O2 Delivery O2 Flow Rate FiO2 09/25/24 01:00 98.2 83 16 105/73 (84) 97 98.2 09/24/24 17:40 Room Air* 0 21 Intake and Output 09/25/24 07:00 Intake Total 50 ml Output Total 930 ml Balance -880 ml Intake IV Total 50 ml Output Urine Total 930 ml Lab results Laboratory Tests Test 09/21/24 09:55 Range/Units White Blood Count 6.2 4.4-10.8 10^3/uL Red Blood Count 3.38 L 4.0-5.20 10^6/uL Hemoglobin 10.8 L 12.2-16.2 g/dL Hematocrit 32.1 L 36.0-46.0 % Mean Corpuscular Volume 95.1 80.0-100.0 fL Mean Corpuscular Hemoglobin 32.1 H 28.0-32.0 pg Mean Corpuscular Hemoglobin Concent 33.7 32.0-36.0 g/dL Red Cell Distribution Width 14.0 11.8-14.3 % Platelet Count 193 140-450 10^3/uL Mean Platelet Volume 7.0 6.9-10.8 fL Neutrophils (%) (Auto) 51.1 37.0-80.0 % Lymphocytes (%) (Auto) 39.7 10.0-50.0 % Monocytes (%) (Auto) 7.3 0.0-12.0 % Eosinophils (%) (Auto) 1.4 0.0-7.0 % Basophils (%) (Auto) 0.5 0.0-2.0 % Neutrophils # (Auto) 3.2 1.6-8.6 10 ^3/uL Lymphocytes # (Auto) 2.5 0.4-5.4 10 ^3/uL Monocytes # (Auto) 0.5 0-1.3 10 ^3/uL Eosinophils # (Auto) 0.1 0-0.8 10 ^3/uL Basophils # (Auto) 0 0-0.2 10 ^3/uL Nucleated Red Blood Cells 0.0 % Prothrombin Time 10.1 9.3-11.8 sec Prothrombin Time INR 0.95 0.9-1.15 Activated Partial Thromboplast Time 28.8 24.5-34.5 SEC Urine Color Colorless Yellow Urine Clarity Clear Clear Urine pH 6.0 5.0-9.0 Urine Specific [place] 1.012 1.001-1.035 Urine Protein Negative Negative Urine Ketones Negative Negative Urine Blood Trace H Negative /uL Urine Nitrite Negative Negative Urine Bilirubin Negative Negative Urine Urobilinogen Normal Negative mg/dL Urine Leukocyte Esterase 2+ Negative /uL Urine RBC 2 0 - 4 /hpf Urine Microscopic WBC 8 H 0-5 /HPF Urine Squamous Epithelial Cells Few <5 /hpf Urine Bacteria None seen None Seen /hpf Urine Glucose Normal Normal mg/dL Sodium Level 139 136-145 mmol/L Potassium Level 4.7 3.5-5.1 mmol/L Chloride Level 108 H 98-107 mmol/L Carbon Dioxide Level 24 20-31 mmol/L Anion Gap 7 5-15 Blood Urea Nitrogen 30 H 9-23 mg/dL Creatinine 1.55 H 0.550-1.02 mg/dL Glomerular Filtration Rate Calc 36 >90 mL/min BUN/Creatinine Ratio 19.4 10.0-20.0 Serum Glucose 116 H 74-106 mg/dL Calcium Level 9.7 8.7-10.4 mg/dL Total Bilirubin 0.3 0.2-1.0 mg/dL Aspartate Amino Transferase (AST) 18 13-40 U/L Alanine Aminotransferase (ALT) 12 7-40 U/L Alkaline Phosphatase 104 46-116 U/L Total Protein 7.3 5.7-8.2 g/dL Albumin 4.6 3.2-4.8 g/dL Assessment and Plan ASSESSMENT AND PLAN Assessment and Plan POD#1 s/p TVH, A&P repairs, Cystoscopy, US Colpopexy - s/p Vaginal Packing removed - D/C artis catheter. Voiding trial - D/C planning this evening or tomorrow a.m if remains stable - D/C meds eRx sent - F/U in office in 1 week after discharge. My orders: Orders - ALEM FERMIN DO Electrocardigram (09/21/24 09:30) Admit (09/24/24 12:04) Ondansetron Hcl (Zofran) (09/24/24 12:15) Hydromorphone Injection (Dilaudid Inject (09/24/24 12:15) Sodium Chloride 0.9% (09/24/24 12:15) D/C Artis (09/24/24 12:04) Incentive Spirometry (09/24/24 12:04) Regular Diet (09/24/24 Lunch) Hydrocodone-Acet 5/325mg Tab (Zenda 5/32 (09/24/24 12:15) Hydrocodone-Acet 5/325mg Tab (Zenda 5/32 (09/24/24 12:15) Oxybutynin Chloride Tablet (Ditropan Tab (09/24/24 22:00) Comprehensive Metabolic Panel (09/25/24 04:00) Complete Blood Count (09/25/24 04:00) Plan discussed with: Patient Visit Coding OBGYN Date of Service: September 25, 2024 Billing Provider: ALEM FERMIN DO TABLE ASSEMBLER Common Visit Codes: [id number] INP/OBS CARE(MOD) ALEM FERMIN DO September 25, 2024 02:05
[2024-09-25 07:18] LABS: Albumin 4.2 g/dL (3.2-4.8); Alkaline Phosphatase 68 U/L (46-116); Anion Gap 9 (5-15); BUN/Creatinine Ratio 15.8 (10.0-20.0); Calcium 9.8 mg/dL (8.7-10.4); Carbon Dioxide 22 mmol/L (20-31); Chloride 104 mmol/L (98-107); Potassium 4.4 mmol/L (3.5-5.1); Total Protein 6.7 g/dL (5.7-8.2)
[2024-09-25 07:19] LABS: Aspartate Aminotransferase 23 U/L (13-40); Basophils # (auto) 0 10 ^3/uL (0-0.2); Basophils % (auto) 0.1 % (0.0-2.0); Bilirubin, Total 0.4 mg/dL (0.2-1.0); Eosinophils # (auto) 0 10 ^3/uL (0-0.8); Hematocrit 28.4 % (36.0-46.0); Hemoglobin 9.6 g/dL (12.2-16.2); Lymphocytes # (auto) 1.6 10 ^3/uL (0.4-5.4); Lymphocytes % (auto) 11.2 % (10.0-50.0); Mean Corpuscular Hemoglobin 32.1 pg (28.0-32.0); Mean Corpuscular Hgb Conc. 33.9 g/dL (32.0-36.0); Mean Corpuscular Volume 94.7 fL (80.0-100.0); Monocytes # (auto) 0.8 10 ^3/uL (0-1.3); Monocytes % (auto) 5.7 % (0.0-12.0); Neutrophils # (auto) 12.2 10 ^3/uL (1.6-8.6); Platelet Count (auto) 182 10^3/uL (140-450); Red Cell Distribution Width 13.7 % (11.8-14.3); White Blood Cell 14.7 10^3/uL (4.4-10.8)
[2024-09-25 07:20] LABS: Alanine Aminotransferase < 9 U/L (7-40); Blood Urea Nitrogen 24 mg/dL (9-23); Glucose 126 mg/dL (74-106); Sodium 135 mmol/L (136-145)
[2024-09-26 01:00] VITALS: BP 140/54; PULSE 78; RESP 18; TEMP 97.9; O2SAT 99
[2024-09-26 05:00] VITALS: BP 128/61; PULSE 70; RESP 16; TEMP 98.6; O2SAT 99
[2024-09-26 08:00] VITALS: PULSE 84; RESP 18; O2SAT 100
--- NOTE | 2024-09-26 08:49 | DVHPN2 ---
Chief Complaints Patient reports: No new complaints Nursing reports: No new complaints Objective Vitals Vital Signs Date Time Temp Pulse Resp B/P (MAP) Pulse Ox O2 Delivery O2 Flow Rate FiO2 09/26/24 05:00 98.6 70 16 128/61 (83) 99 98.6 09/25/24 20:18 Room Air* 0 21 Head/Eyes: Normal Lungs: Normal Cardiovascular: Normal Abdominal: Soft Extremities: Normal Others pelvic-no vag bleeding Studies Laboratory Tests 09/25/24 05:23 Test 09/25/24 05:23 Range/Units Serum Glucose 126 H 74-106 mg/dL Ass/Plan Assessment s/p tvh,ant /post repair Plan dc home fu in 1wk Visit Coding OBGYN Date of Service: September 26, 2024 Billing Provider: ANDREW MOORE DO [employer]ARING HE[employer]CARE PRACTITIONER Common Visit Codes: [id number] INP/OBS CARE(HIGH), 23973-DWT/OBS DISCH DAY >30MIN ANDREW MOORE DO September 26, 2024 08:49
--- NOTE | 2024-09-26 08:51 | DVHDS2 ---
Physician Discharge Progress N Final Diagnosis: s/p tvh ,a-p repair Operations or Procedures: Operations or Procedures vag hyst Condition on Discharge: Good Disposition: Home Discharge Instructions: Diet: Regular Activity: Light activity Medications: darwin joseph Follow Up Care: Specialist: 1wk with me Discharge Statement: "Patient was advised to return to the ER or call 911 if any headaches, dizziness, shortness of breath, chest pain, abdominal pain, bleeding, fevers, or worsening of medical condition. Patient was counseled about treatment plan, medications, possible side effects, patientverbalized understanding. All questions were answered to the best of my ability. This discharge took greater then 30 minutes in planning, reviewing documentation , counseling the patient, and discussing with other team members." Visit Coding OBGYN Date of Service: September 26, 2024 Billing Provider: ANDREW MOORE DO CREEL HAND Common Visit Codes: [id number] INP/OBS CARE(HIGH), 73359-SFW/OBS DISCH DAY >30MIN ANDREW MOORE DO September 26, 2024 08:51
[2024-09-26 09:00] VITALS: BP 114/59; PULSE 84; RESP 18; TEMP 98.1; O2SAT 100
[2024-09-26 10:36] VITALS: BP 114/59; PULSE 84; RESP 18; TEMP 98.1; O2SAT 100
[2024-09-26] MEDS ORDERED: DexAMETHasone SOD PHOS 10MG/1ML VIAL INJ IV ONE (11:44)
== END 2024-09-26 11:45 | disposition home or self-care (01) | DRG 743 ==
LOC: SUR 06:10 → OVERFLOW 12:04 → CENTRAL 17:40
PROVIDERS: ADMIT Obstetrics & Gynecology; ATTEND Obstetrics & Gynecology
PROC: 0JQC0ZZ Repair Pelvic Region Subcutaneous Tissue and Fascia, Open Approach (ICD-10-PCS; 2024-09-24)
PROC: 0USG0ZZ Reposition Vagina, Open Approach (ICD-10-PCS; 2024-09-24)
PROC: 0TJB8ZZ Inspection of Bladder, Via Natural or Artificial Opening Endoscopic (ICD-10-PCS; 2024-09-24)
PROC: 0UT97ZZ Resection of Uterus, Via Natural or Artificial Opening (ICD-10-PCS; principal; 2024-09-24 07:56)
DX: N81.3 Complete uterovaginal prolapse (principal); D63.1 Anemia in chronic kidney disease; E21.3 Hyperparathyroidism, unspecified; E78.5 Hyperlipidemia, unspecified; I12.9 Hypertensive chronic kidney disease with stage 1 through stage 4 chronic kidney disease, or unspecified chronic kidney disease; N18.30 Chronic kidney disease, stage 3 unspecified; M85.80 Other specified disorders of bone density and structure, unspecified site; Z88.8 Allergy status to other drugs, medicaments and biological substances; Z83.3 Family history of diabetes mellitus; Z82.49 Family history of ischemic heart disease and other diseases of the circulatory system
CPT/HCPCS: 36415; 80053; 81001; 85025; 85610; 85730; 86850; 86900; 86901; G0378; J1100; J2250; J2405; J2704

== ENCOUNTER 2024-12-03 07:50 | Outpatient (CLI) | payer OTHER ==
[~2024-12-03 07:50] MED LIST changes: +ESTR0.1C5 VA; +HYDR-4902 PO
[2024-12-03 08:35] LABS: Urine Protein, UAD TRACE (Negative)
[2024-12-03 08:36] LABS: Hematocrit 33.0 % (36.0-46.0); Hemoglobin 11.2 g/dL (12.2-16.2); Mean Corpuscular Hemoglobin 32.2 pg (28.0-32.0); Mean Corpuscular Volume 94.7 fL (80.0-100.0); Nucleated Red Blood Cells % 0.0 %
[2024-12-03 08:51] LABS: Alanine Aminotransferase 11 U/L (7-40); Albumin 4.7 g/dL (3.2-4.8); Alkaline Phosphatase 91 U/L (46-116); Anion Gap 8 (5-15); BUN/Creatinine Ratio 17.1 (10.0-20.0); Calcium 10.0 mg/dL (8.7-10.4); Carbon Dioxide 24 mmol/L (20-31); Glucose 93 mg/dL (74-106); Potassium 4.8 mmol/L (3.5-5.1); Sodium 141 mmol/L (136-145); Total Protein 7.2 g/dL (5.7-8.2)
[2024-12-03 08:52] LABS: Bilirubin, Total 0.3 mg/dL (0.2-1.0); Blood Urea Nitrogen 28 mg/dL (9-23); Chloride 109 mmol/L (98-107)
== END 2024-12-03 17:00 | disposition home or self-care (01) ==
LOC: LAB 07:50
PROVIDERS: ATTEND Student in an Organized Health Care Education/Training Program
DX: I10 Essential (primary) hypertension (principal); Z12.11 Encounter for screening for malignant neoplasm of colon
CPT/HCPCS: 36415; 80053; 81001; 82274; 84443; 85025

== ENCOUNTER 2025-02-05 08:19 | Outpatient (CLI) | payer OTHER ==
[2025-02-05 08:46] LABS: Urine Protein, UAD TRACE (Negative)
[2025-02-05 08:47] LABS: Potassium 4.4 mmol/L (3.5-5.1); Sodium 142 mmol/L (136-145)
[2025-02-05 08:48] LABS: Anion Gap 10 (5-15); Carbon Dioxide 24 mmol/L (20-31)
[2025-02-05 08:49] LABS: Calcium 9.1 mg/dL (8.7-10.4)
[2025-02-05 08:50] LABS: Chloride 108 mmol/L (98-107); Protein, Urine 44.1 mg/dL (1-14)
[2025-02-05 08:53] LABS: BUN/Creatinine Ratio 13.5 (10.0-20.0); Blood Urea Nitrogen 23 mg/dL (9-23); Glucose 92 mg/dL (74-106)
[2025-02-05 08:55] LABS: Microalb/Creat Ratio, Urine 52.0
== END 2025-02-05 17:00 | disposition home or self-care (01) ==
LOC: LAB 08:19
PROVIDERS: ATTEND Internal Medicine Nephrology
DX: E11.22 Type 2 diabetes mellitus with diabetic chronic kidney disease (principal); N18.30 Chronic kidney disease, stage 3 unspecified; E11.21 Type 2 diabetes mellitus with diabetic nephropathy; N39.0 Urinary tract infection, site not specified; R80.9 Proteinuria, unspecified; E21.3 Hyperparathyroidism, unspecified; M10.9 Gout, unspecified; E55.9 Vitamin D deficiency, unspecified; D63.1 Anemia in chronic kidney disease
CPT/HCPCS: 36415; 80048; 81001; 82043; 82570; 84156